=== PATIENT | female | born 1930 | race Caucasian/White ===

== ENCOUNTER 2016-06-15 10:20 | Emergency (ER) | payer MEDICARE, OTHER ==
--- NOTE | 2016-06-15 10:29 | EDM.PDOC ---
ED HPI ENT - General Chief Complaint: ENT Problem Stated Complaint: NOSE BLEED Time Seen by Provider: 06/15/16 10:29 Source of Information: Reports: Patient History Limitations: Reports: No limitations - History of Present Illness INITIAL COMMENTS - FREE TEXT/NARRATIVE: 85-year-old female returns the ED with spontaneous left-sided nosebleed this morning. No trauma. She is not on any anticoagulants. Her pressure was elevated upon arrival 181 systolic over 75. She reports no previous nosebleeds this winter. He we will to get the nosebleed for the most part stopped by firm compression of the nose for 15 minutes. 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.) Occupation: retired ED ROS ENT - Review of Systems Review Of Systems: See Below Constitutional: Reports: no symptoms HEENT: Reports: Nosebleed Respiratory: Reports: No Symptoms (See history of present illness) Cardiovascular: Reports: No symptoms Endocrine: Reports: no symptoms GI/Abdominal: Reports: No symptoms : Reports: no symptoms Musculoskeletal: Reports: no symptoms Skin: Reports: no symptoms Neurological: Reports: No Symptoms Psychiatric: Reports: No symptoms Hematologic/Lymphatic: Reports: no symptoms ED EXAM, ENT - Physical Exam Exam: See Below Exam Limited By: No limitations General Appearance: alert, WD/WN, anxious, mild distress Nose: active bleeding (Minimal active bleeding from the left anterior nasal septum. No clots in either nares. The right nasal septum appears normal.) Mouth/Throat: Normal inspection, Normal gums, Normal lips, Normal teeth, Other ( No blood in the nasopharynx or superior oropharynx.) ED ENT PROCEDURES - Epistaxis Procedure Indication: epistaxis, controlled Recent anticoagulants/antiplatlets: No Uncontrolled HTN: No Recent septal/nasal surgery: No Site of bleeding: left nare, anterior Topical Meds: other Ice pack to area: No Chemical cautery: silver nitrate topical Course - Vital Signs Last Recorded V/S: Last Vital Signs Temp 36.2 C 06/15/16 10:32 Pulse 72 06/15/16 10:32 Resp 16 06/15/16 10:32 BP 171/67 H 06/15/16 10:32 Pulse Ox 97 06/15/16 10:32 - Radiology Interpretation Free Text/Narrative:: 85-year-old female arrives in the ED with a sudden onset of left nosebleed. Exam reveals this to be an anterior septal nosebleed which was cauterized with silver nitrate x4 with control of the initial hemorrhage. - Re-Assessments/Exams Free Text/Narrative Re-Assessment/Exam: 06/15/16 10:52 inspected the left anterior nasal septum barium and then cauterized with silver nitrate. No further bleeding is evident. She'll be discharged home. She will use Polysporin ointment into the naris on each side of the septum at bedtime for the next week and then on Wednesdays and Sundays nights for the next 2 weeks after this to prevent further bleeding. Her she will return to the ED if any further nosebleeds occur. Blood pressure came down nicely to 157 systolic. Departure - Departure Time of Disposition: 10:53 Disposition: Home, Self-Care 01 Condition: fair Clinical Impression: Anterior epistaxis Instructions: Nosebleed, [id number] Referrals: Bello Rivera MD [Primary Care Provider] - Forms: ED Department Discharge Additional Instructions: Evaluation in the emergency room today in regards to acute onset of bleeding from the left nose. Examination shows active bleeding from the left anterior nasal septum and appears to be due to dryness of the lining of the nose. There was treated with silver nitrate cauterization which worked well. Treatment at home is to use Polysporin ointment applied by Q-tip every night at bedtime to each side of the septum for the next week and then on Friday and Friday nights for 2 more weeks to prevent further bleeding. Increase humidification in his sleeping quarters would be useful to try prevent further bleeding. Of course return to the ED if any further bleeding occurs. Try not to blow her nose runny nose with at least 48 hours. Of note the nose will run her cry a little bit after silver nitrate application for about one hour after treatment.
== END 2016-06-15 11:00 | disposition home or self-care (01) ==
LOC: JD.ED 10:20
CPT/HCPCS: 30901; 99282-25; 99283-25